=== PATIENT | male | born 1965 | race Caucasian/White ===

== ENCOUNTER 2017-10-16 12:35 | Emergency (ER) | payer BC ==
[~2017-10-16] VITALS: Ht 172.7 cm; Wt 72.0 kg
[2017-10-16 13:28] VITALS: BP 121/77
[2017-10-16] MEDS ORDERED: KEFLEX500 M1 PO (13:40)
[2017-10-16] MEDS ORDERED: BACTRIM DS1 TAB PO (13:40)
--- NOTE | 2017-10-19 09:09 | NUR ---
Pt returned call to pharmacy department concerning culture results. Explained abscess culture growing MRSA and pt may discontinue cephalexin and continue Bactrim. Pt repeated back directions multiple times. All concerns addressed.
== END 2017-10-16 13:42 | disposition home or self-care (01) | DRG 603 ==
LOC: ED 12:35
PROC: 0H98XZZ Drainage of Buttock Skin, External Approach (ICD-10-PCS; principal; 2017-10-16)
DX: L02.31 Cutaneous abscess of buttock (principal); L03.317 Cellulitis of buttock; B95.62 Methicillin resistant Staphylococcus aureus infection as the cause of diseases classified elsewhere